=== PATIENT | male | born 1980 | race Caucasian/White ===

== ENCOUNTER → 2020-05-02 16:54 | Outpatient (BNVA) | payer OTHER, SELFPAY | PROVIDERS: Family Provider Nurse Practitioner Family; PCP Nurse Practitioner Family; Visit Provider Nurse Practitioner Family | DX: G89.29 Other chronic pain (principal); M54.16 Radiculopathy, lumbar region; Z13.6 Encounter for screening for cardiovascular disorders; J30.9 Allergic rhinitis, unspecified | CPT/HCPCS: 80053; 80061; 85025 ==

== ENCOUNTER → 2021-06-28 16:00 | Outpatient (BNVA) | payer OTHER, SELFPAY | PROVIDERS: Family Provider Nurse Practitioner Family; PCP Nurse Practitioner Family; Visit Provider Nurse Practitioner Family | DX: M54.16 Radiculopathy, lumbar region (principal); G89.29 Other chronic pain; Z13.6 Encounter for screening for cardiovascular disorders; F32.9 Major depressive disorder, single episode, unspecified; F41.9 Anxiety disorder, unspecified | CPT/HCPCS: 80053; 80061; 82306; 85025 ==

== ENCOUNTER → 2021-07-22 09:12 | Outpatient (BNVA) | payer OTHER, SELFPAY | PROVIDERS: Family Provider Nurse Practitioner Family; PCP Nurse Practitioner Family; Referring Provider Nurse Practitioner Family; Visit Provider Anesthesiology Pain Medicine | DX: G89.29 Other chronic pain (principal); M48.062 Spinal stenosis, lumbar region with neurogenic claudication; M47.816 Spondylosis without myelopathy or radiculopathy, lumbar region; M51.16 Intervertebral disc disorders with radiculopathy, lumbar region; M79.604 Pain in right leg; M79.605 Pain in left leg; F17.200 Nicotine dependence, unspecified, uncomplicated | CPT/HCPCS: 99204 ==

== ENCOUNTER 2021-08-21 08:22 | Outpatient (CLI) | payer OTHER, SELFPAY ==
--- NOTE | 2021-08-21 09:30 | XR_ITS ---
WS: [id number] LATERAL LUMBAR SPINE: 3 view. Lateral radiographs are performed in upright neutral, flexion and extension to the patient's toleranc e. HISTORY: M47.816 - Spondylosis without myelopathy or radiculopathy..., Chronic back pain rating to lo [facility] extremities. COMPARISON: 03/06/2020 Posterior lumbar alignment is normal. Mild disc space narrowing at L5-S1. No fractures. With flexion and extension there is no instability. XR/XR lumbar spine f/e only [id number] IMPRESSION: No lumbar spine instability.
== END 2021-08-21 08:23 | disposition home or self-care (01) ==
PROVIDERS: PCP Nurse Practitioner Family; Visit Provider Anesthesiology Pain Medicine
DX: M47.816 Spondylosis without myelopathy or radiculopathy, lumbar region (principal)
CPT/HCPCS: 72120

== ENCOUNTER 2021-08-21 08:22 | Outpatient (CLI) | payer OTHER, SELFPAY ==
--- NOTE | 2021-08-21 08:28 | MR_ITS ---
WS: [id number] MRI LUMBAR SPINE NONCONTRAST HISTORY: SPINAL STENOSIS, LUMBAR REGION COMPARISON: 03/06/2020 TECHNIQUE: Sagittal and axial multisequence imaging is submitted. Very slight straightening of the normal lumbar lordosis. Disc spaces are well preserved with only min imal desiccation at L5-S1. No fracture or marrow edema. Conus terminates normally at L1. L1-L2: Normal. L2-L3: Normal. L3-L4: Mild ligamentum flavum hypertrophy. No stenosis. L4-L5: Mild annular disc bulging. Previously described central to RIGHT paracentral disc protrusion h as significantly decreased in size. There is a focal soft tissue nodule consistent with disc extendi ng into the RIGHT subarticular recess contacting the RIGHT lateral thecal sac and the traversing RIGH T L5 nerve root. Small vertebral body osteophytes. There is also mild contact and narrowing of the LE FT subarticular recess predominantly due to disc and facet arthritis. Mild central stenosis with mild clumping of the nerve roots. There does appear to be a remote hemilaminectomy defect on the RIGHT at L4-5. L5-S1: Mild disc bulging with a very shallow central disc protrusion with annular fissures. No contac t on the nerve roots. Paravertebral soft tissues as visualized are negative. MR/MR lumbar spine wo con* [id number] IMPRESSION: 1. Moderate improvement of the previously described disc protrusion at L4-5. 2. Residual disc protrusion central and RIGHT paracentral at L4-5 is slightly extruded cephalad to the disc and contacts the traversing L5 nerve root. 3. Additional mild central stenosis at L4-5 with disc also contacting the lorie ersing LEFT L5 nerve root.
== END 2021-08-21 08:23 | disposition home or self-care (01) ==
PROVIDERS: PCP Nurse Practitioner Family; Visit Provider Anesthesiology Pain Medicine
DX: M48.062 Spinal stenosis, lumbar region with neurogenic claudication (principal); M51.26 Other intervertebral disc displacement, lumbar region
CPT/HCPCS: 72148

== ENCOUNTER → 2021-11-27 15:25 | Outpatient (BNVA) | payer OTHER, SELFPAY | PROVIDERS: PCP Nurse Practitioner Family; Visit Provider Nurse Practitioner Family | DX: M54.16 Radiculopathy, lumbar region (principal); G89.29 Other chronic pain; Z13.6 Encounter for screening for cardiovascular disorders; F41.9 Anxiety disorder, unspecified; F32.9 Major depressive disorder, single episode, unspecified; E55.9 Vitamin D deficiency, unspecified; E78.5 Hyperlipidemia, unspecified; K21.9 Gastro-esophageal reflux disease without esophagitis; J30.1 Allergic rhinitis due to pollen | CPT/HCPCS: 80053; 80061; 82306; 82607; 83735; 84443; 85025 ==

== ENCOUNTER → 2022-05-19 17:36 | Outpatient (BNVA) | payer OTHER, SELFPAY | PROVIDERS: PCP Nurse Practitioner Family; Visit Provider Nurse Practitioner Family | DX: E55.9 Vitamin D deficiency, unspecified (principal); E78.5 Hyperlipidemia, unspecified; M51.16 Intervertebral disc disorders with radiculopathy, lumbar region; J30.1 Allergic rhinitis due to pollen; K21.9 Gastro-esophageal reflux disease without esophagitis; F41.9 Anxiety disorder, unspecified; F32.9 Major depressive disorder, single episode, unspecified | CPT/HCPCS: 80053; 80061; 82306; 85025 ==

== ENCOUNTER → 2023-02-06 08:58 | Outpatient (BNVA) | payer OTHER, SELFPAY | PROVIDERS: PCP Nurse Practitioner Family; Referring Provider Nurse Practitioner Family; Visit Provider Student in an Organized Health Care Education/Training Program | DX: M79.642 Pain in left hand (principal); R22.32 Localized swelling, mass and lump, left upper limb | CPT/HCPCS: 73130 ==

== ENCOUNTER 2023-02-24 11:12 | Outpatient (CLI) | payer OTHER, SELFPAY ==
--- NOTE | 2023-02-24 11:45 | MR_ITS ---
WS: [id number] MRI OF THE LEFT HAND WITHOUT GADOLINIUM ENHANCEMENT. INDICATION: Pain in LEFT wrist. History of trauma. TECHNIQUE: Axial T1, axial T2, coronal T1, coronal STIR, sagittal T2 fat sat, coronal 3-D FSPGR FINDINGS: Small amount of edema in the capitate suspicious for nondisplaced fracture. Small fracture line visualized on the T1 imaging. Recommend correlation with area of pain. Small amounts of subcutaneous edema deep to the palpable marker along the dorsal wrist at the level o f the proximal metacarpals. No evidence of underlying fracture in the metacarpals. Small amount of so ft tissue contusion. Tenosynovitis along the adjacent extensor tendons. Small amount of fluid and michelle ma along the extensor retinaculum. Cystic degenerative changes involving the proximal and distal carpal row. Normal scaphoid. Normal natalie ate. Normal extensor carpi ulnaris. Normal carpal tunnel. Cystic degenerative changes involving the 3 rd metacarpal head. IMPRESSION: 1. Small amount of edema in the extensor retinaculum with tenosynovitis along the adjacent extensor tendons deep to the palpable marker. 2. Small amount of edema in the adjacent capitate suspicious nondisplaced fracture. Small fracture l ine visualized on the T1 imaging. Recommend correlation with area of pain. 3. Palpable marker overlying the base of the 3rd and 4th metacarpals. No fractures or dislocation in this area. 4. Normal scaphoid and lunate. 5. No other acute findings.
== END 2023-02-24 11:13 | disposition home or self-care (01) ==
PROVIDERS: PCP Nurse Practitioner Family; Visit Provider Student in an Organized Health Care Education/Training Program
DX: M79.642 Pain in left hand (principal); R60.0 Localized edema
CPT/HCPCS: 73218

== ENCOUNTER 2023-03-05 10:40 | Outpatient (CLI) | payer OTHER, SELFPAY | END 2023-03-05 10:41 | disposition home or self-care (01) | LOC: SPT 10:40 | PROVIDERS: PCP Nurse Practitioner Family; Visit Provider Student in an Organized Health Care Education/Training Program | DX: Z46.89 Encounter for fitting and adjustment of other specified devices (principal); M79.642 Pain in left hand | CPT/HCPCS: 97760; L3807 ==

== ENCOUNTER → 2023-04-23 08:05 | Outpatient (BNVA) | payer OTHER, SELFPAY | PROVIDERS: PCP Nurse Practitioner Family; Visit Provider Student in an Organized Health Care Education/Training Program | DX: S62.132A Displaced fracture of capitate [os magnum] bone, left wrist, initial encounter for closed fracture; X58.XXXA Exposure to other specified factors, initial encounter | CPT/HCPCS: 73130 ==

== ENCOUNTER → 2023-05-27 12:07 | Outpatient (BNVA) | payer OTHER, SELFPAY | PROVIDERS: PCP Nurse Practitioner Family; Visit Provider Nurse Practitioner Family | DX: E55.9 Vitamin D deficiency, unspecified (principal); E78.5 Hyperlipidemia, unspecified; G89.29 Other chronic pain; M54.16 Radiculopathy, lumbar region; Z79.899 Other long term (current) drug therapy | CPT/HCPCS: 80053; 80061; 82306; 82607; 83735; 84443; 85025 ==

== ENCOUNTER → 2023-10-13 16:57 | Outpatient (BNVA) | payer OTHER, SELFPAY | PROVIDERS: PCP Nurse Practitioner Family; Visit Provider Nurse Practitioner Family | DX: E78.5 Hyperlipidemia, unspecified | CPT/HCPCS: 80053; 80061; 85025 ==

== ENCOUNTER → 2023-10-22 13:16 | Outpatient (BNVA) | payer OTHER, SELFPAY | PROVIDERS: PCP Nurse Practitioner Family; Visit Provider Orthopaedic Surgery | DX: M51.16 Intervertebral disc disorders with radiculopathy, lumbar region (principal); M48.062 Spinal stenosis, lumbar region with neurogenic claudication; M54.9 Dorsalgia, unspecified | CPT/HCPCS: 72110 ==

== ENCOUNTER 2023-11-09 06:48 | Outpatient (CLI) | payer OTHER, SELFPAY ==
--- NOTE | 2023-11-09 07:15 | MR_ITS ---
WS: [id number] MRI LUMBAR SPINE NONCONTRAST HISTORY: back pain, RIGHT leg radiculopathy. COMPARISON: 08/21/2021 TECHNIQUE: Sagittal and axial multisequence imaging is submitted. C6-7 Central disc protrusion may contact the ventral cord. No high-grade stenosis. Normal lumbar alignment with no compression fractures or marrow edema. Mild disc space narrowing and desiccation at L4-5 and L5-S1. Conus terminates normally at L1. L1-L2: Normal. L2-L3: Normal. L3-L4: Mild annular disc bulging with mild ligamentum flavum and facet arthritis. There is slight radha rowing encroaching upon the ventral thecal sac which does appear progressed since the prior study. No high-grade stenosis. L4-L5: Diffuse annular disc bulging with a central broad-based disc protrusion. Disc protrusions exte nds into the subarticular recesses contacting the traversing L5 nerve roots bilaterally. Mild central and bilateral subarticular recess stenosis with mild encroachment into the foramina. There does appe ar to be a slight progression of stenosis at the L4-5 level with more disc protrusion into the subart icular recesses. Annular fissuring RIGHT paracentral. L5-S1: Mild annular disc bulging with mild facet arthritis. There is a small central disc protrusion with annular fissure. No interval change since the prior study. No significant contact on the nerve r oots. Paravertebral soft tissues are normal. IMPRESSION: 1. L4-5: Mild central, bilateral subarticular recess and foraminal stenosis. Mild progression of dis c contact on the traversing L5 nerve roots in the subarticular recesses. 2. Small central disc protrusion at L5-S1 with annular fissure is unchanged. No significant stenosis at L5-S1. 3. Very mild progression of central canal narrowing at L3-4. No significant stenosis.
== END 2023-11-09 06:49 | disposition home or self-care (01) ==
LOC: RAD 06:49
PROVIDERS: PCP Nurse Practitioner Family; Visit Provider Orthopaedic Surgery
DX: M51.27 Other intervertebral disc displacement, lumbosacral region (principal); M48.061 Spinal stenosis, lumbar region without neurogenic claudication
CPT/HCPCS: 72148

== ENCOUNTER → 2023-11-17 15:33 | Outpatient (BNVA) | payer OTHER, SELFPAY | PROVIDERS: PCP Nurse Practitioner Family; Visit Provider Orthopaedic Surgery | DX: M48.062 Spinal stenosis, lumbar region with neurogenic claudication (principal); Z09 Encounter for follow-up examination after completed treatment for conditions other than malignant neoplasm | CPT/HCPCS: 36415; 80053; 81003; 85025 ==

== ENCOUNTER 2023-12-14 17:14 | Observation (INO) | payer OTHER, SELFPAY ==
[2023-12-14] VITALS (15 sets, daily range): BP systolic 96–143; BP diastolic 57–95; PULSE 75–121; RESP 16–19; TEMP 36.4–36.7; O2SAT 92–99; BMI 28.5
--- NOTE | 2023-12-14 | XR_ITS ---
WS: [email or web address] C-ARM RADIOGRAPHS LUMBAR SPINE; 3 IMAGES HISTORY: ALFREDITO PICS COMPARISON: None available. Intraoperative imaging during lumbar fusion. Hardware extending from L4-S1. Interbody disc spacers at L4-5 and L5-S1. XR/XR lumbar spine 2-3V* [id number] IMPRESSION: Intraoperative imaging during lumbosacral fusion.
--- NOTE | 2023-12-14 12:27 | P.ANESASSM_ITS ---
Pre-Anesthetic Assessment Height/Weight: Height 1.83 m Weight 95.254 kg Temp Pulse Resp BP Pulse Ox O2 Del Method 98.1 F 75 16 143/95 99 Room Air 12/14/23 11:24 12/14/23 11:24 12/14/23 11:24 12/14/23 11:24 12/14/23 11:24 12/14/23 11:36 Preop Diagnosis: Lumbar stenosis neurogenic claudication Operation Date: 12/14/23 12:40 Proposed Procedures p Posterior Lumbar Interbody Fusion(Not Applicable) - Angel Estrada, DO Familial anesthetic complications: None Was Beta Henny taken within 24 hours: N/A Was Clonidine taken within 24 hours: N/A Last intake: Intake Last Liquid Date 12/13/23 Last Liquid Time 22:00 Last Solid Date 12/13/23 Last Solid Time 22:00 Social No alcohol and No tobacco Exam alert, oriented x 3, clear to auscultation bilaterally and regular rate & rhythm Airway Mallampati: Class IV Dentition: full Comments: Comments: full horan CV/HEM Hypertension GI Gastroesophageal Reflux Disease Anesthetic Plan ASA status: 2 Anesthesia: General Risk of > 500 ml blood loss (7ml/kg in children): No Medications/Allergies Home Medications Medication Instructions Recorded Confirmed Last Taken Type FAST FORM #1 ea 03/05/23 11/17/23 Unknown Rx diclofenac sodium 1 % topical gel 4 g topical QID #100 grams 03/05/23 12/11/23 Unknown Rx (Voltaren Arthritis Pain) fast form left hand #1 ea 03/05/23 11/17/23 Unknown Rx epinephrine 0.3 mg/0.3 mL 0.3 mg (0.3 mL) IM ONCE PRN 05/27/23 12/11/23 Unknown Rx injection, auto-injector (EpiPen) anaphylaxis #1 ea celecoxib 200 mg capsule (Celebrex) 200 mg PO BID PRN pain #60 caps 10/13/23 12/11/23 12/09/23 Rx bone growth stimulator #1 ea 11/18/23 Unknown Rx baclofen 20 mg tablet 20 mg PO BID 12/11/23 12/11/23 12/09/23 History fluoxetine 40 mg capsule 40 mg PO BID 12/11/23 12/11/23 12/14/23 History lisinopril 10 mg tablet 10 mg PO DAILY 12/11/23 12/11/23 12/10/23 History montelukast 10 mg tablet 10 mg PO DAILY 12/11/23 12/11/23 12/13/23 History omeprazole 20 mg capsule,delayed 20 mg PO DAILY 12/11/23 12/11/23 12/13/23 History release Allergies Allergy/AdvReac Type Severity Reaction Status Date / Time ragweed pollen Allergy Severe shortness Verified 12/11/23 11:46 of breath; throat closes up; anaphylaxis gabapentin Allergy hallucinati Verified 12/11/23 11:46 ons [facility] Anesthesia Medical History Displacement of lumbar disc with radiculopathy Anxiety and depression Chronic radicular lumbar pain Anxiety Surgical History Hx of shoulder surgery right shoulder 2016 had clean out at [facility] History of back surgery [place] [facility] History of appendectomy Family History Other Cancer Hypertension Social History Smoking and tobacco/nicotine status: former use of tobacco/nicotine (20 years ago) Quit status (tobacco/nicotine): has quit using Year quit tobacco: 2001 Alcohol intake: current Alcohol intake frequency: few times a month Alcohol type: beer Substance/Drug Use: never Caregiver/support person: Yes Lives independently: Yes Marital status: Current occupational status: employed Current gender identity: Male Special chi needs: No Data Anesthesia Cardiac Studies: No Data to Display
[2023-12-14] MEDS: sodium chloride 0.9% 1,000 ML 30 ML IV (12:28)
[2023-12-14] MEDS: midazolam 1 mg/mL INJ 2 mL 2 MG IVP (12:34)
--- NOTE | 2023-12-14 13:51 | W.PM.OPSUD ---
Surgery/Procedure H&P Update DATE OF PROCEDURE: December 14, 2023 DATE H&P PERFORMED: 11/27/23 H&P UPDATE INFORMATION: I have reviewed H&P completed within last 30 days, I have examined patient prior to procedure and No changes to prior documentation PREOP DIAGNOSIS: Lumbar stenosis neurogenic claudication PLANNED PROCEDURE: Operation Date: 12/14/23 12:40 Proposed Procedures p Posterior Lumbar Interbody Fusion(Not Applicable) - Angel Estrada DO
[2023-12-14] MEDS: scopolamine 1.5 Patch 1 PATCH TRANSDERMA (14:05)
[2023-12-14] MEDS: ceFAZolin 2,000 MG in sodium chloride 0.9% (plus) 50 ML 100 MG IV ×3 (14:25→22:21)
[2023-12-14] MEDS: vancomycin 1,000 MG SDV 1000 MG XX (16:56)
[2023-12-14] MEDS: heparin, porcine 1,000 unit/mL INJ 10 mL 10000 UNIT IRRIGATION (16:56)
[2023-12-14] MEDS: lidocaine-epi 1% 20 mL INJ INJECTION (16:57)
--- NOTE | 2023-12-14 19:13 | P.OP_ITS ---
Operative Report Date of procedure: December 14, 2023 Pre-op diagnosis: Lumbar stenosis with neurogenic claudication Post-op diagnosis: same Procedure done: 1.?L5/S1 interbody fusion with posterolateral fusion 2. Cage at L5/S1 3. L4/5 Interbody fusion with posterolateral fusion 4. Cage at L4/5 5.? Instrumentation L4-S1 6. L5-S1 laminectomy with facetectomies 7. L4-5 laminectomy with facetectomies 8. use of computer navigation / stereotactic spine 9. use of autograft from same incision 10. allograft 11. Bone marrow aspirate from right iliac crest 12. Revision spine surgery Surgeon: Angel Estrada DO Estimated blood loss (mL): 750 Complications: Dural tear repaired with water tight seal use DuraGen and DuraSeal. Procedure: 1.?L5/S1 interbody fusion with posterolateral fusion 2. Cage at L5/S1 3. L4/5 Interbody fusion with posterolateral fusion 4. Cage at L4/5 5.? Instrumentation L4-S1 6. L5-S1 laminectomy with facetectomies 7. L4-5 laminectomy with facetectomies 8. use of computer navigation / stereotactic spine 9. use of autograft from same incision 10. allograft 11. Bone marrow aspirate from right iliac crest 12. Revision spine surgery Patient is brought to the operative suite.? After undergoing anesthesia, the patient had neuro monitoring attached.? Patient was then placed in the prone position on the Dar table.? All areas of impingement were well-padded.? Patient was then prepped and draped in the normal sterile fashion.? Skin incision was then made over the L1 to the sacrum using previous skin incision.? Subperiosteal dissection was made out to the transverse processes of L4 bilaterally L5 bilaterally and sacral ala bilaterally.? The [employer] bone marrow aspirate kit was used to aspirate bone marrow aspirate.? This was done by using the sharp probe to open up the bone.? Aspiration was performed and then the blunt probe was then used to dissect down to through the bone tunnel.? An aspirating well drawn back a millimeter approximately 20 cc of bone marrow aspirate was used.? Admixed with the allo graft and autograft bone that will be used. Next attension was brought to placing the fiducial for the computer navigation.? 2 pins were placed into the right iliac crest.? The fiducial was attached.? The C-arm was brought in and information from the C arm was then linked to the computer used for placing the screws.? Next attention was brought to placing the pedicle screws.? This was done by jian fajardo the gearshift probe linked to computer navigation.? The probe was used to identify the pedicle.? Then the pedicle feeler was used followed by placement of screw.? This was done at L4 bilaterally, L5 bilaterally and S1 bilaterally. Next attention was brought to performing the laminectomy of L5. This was done using the high-speed bur Kerrisons and curettes. Once the lamina was removed and then attention was brought to performing a partial facetectomy on the contralateral side. This was done again using the high-speed bur curettes and Kerrisons. The ligamentum flavum was taken down bilaterally from L5 to S1. Attention was then brought to the facet on the ipsilateral side. The facet was taken down. The s1 nerve was decompressed as it passed around the S1 pedicle. The laminectomy was done for purposes of decompressing the nerve as well as placement of the cage. The L5 nerve was identified as it traversed through the L5/s1 foramen. The thecal sac was identified and retracted. The L5/S1 disc base was identified. Using a knife the disc base was opened. And then sequential natalie were placed. The first shaver was a 6 and the last shaver was a 11. Using a pituitary and down going curette the endplates were scraped and disc material was removed from the space. Once adequate decompression of the disc base was felt to be had. Osteoamp sponge was packed into the anterior aspect of the disc base. Then a size 12 cage from [employer] was placed after packing osteoamp into the cage. While placing the cage the thecal sac and S1 nerve was protected. C arm was used to ensure that the cages placed in the appropriate position. Next attention was brought to performing the laminectomy of L4. Patient had had a previous L4-5 laminectomy with partial facetectomy on the right side 2 previous times. There is significant scar tissue. Patient did get a dural tear. Which was repaired with suture seem to be watertight seal and DuraGen and DuraSeal used to repair. A Valsalva maneuver was used and there was no leakage. This was done using the high-speed bur Kerrisons and curettes. Once the lamina was removed and then attention was brought to performing a partial facetectomy on the contralateral side. This was done again using the high-speed bur curettes and Kerrisons. The ligamentum flavum was taken down bilaterally from L4 to L5. Attention was then brought to the facet on the ipsilateral side. The facet was taken down. The L5 nerve was decompressed as it passed around the L5 pedicle. The laminectomy was done for purposes of decompressing the nerve as well as placement of the cage. The L4 nerve was identified as it traversed through the L4/L5 foramen. The thecal sac was identified and retracted. The L4/5 disc space was identified. Using a knife the disc base was opened. And then sequential natalie were placed. The first shaver was a 6 and the last shaver was a 11. Using a pituitary and down going curette the endplates were scraped and disc material was removed from the space. Once adequate decompression of the disc base was felt to be had. Osteoamp sponge was packed into the anterior aspect of the disc base. Then a size 12 cage from [employer] was placed after packing osteoamp into the cage. While placing the cage the thecal sac and L5 nerve was protected. C arm was used to ensure that the cages placed in the appropriate position. Prior to placing the cage there was a small hole made with a drill in the dura. This was repaired using a Nurolon stitch which had watertight closure. Attention was then brought to attaching the rods to the screws placed in theL4 bilaterally, L5 bilaterally and S1 bilaterally.? Caps were torqued into position. Locking the construct in place. Wound was copiously irrigated and then attention was brought to decorticating the facets and transverse processes laterally.? Bone that was taken down from the lamina was used along with osteoamp fibers and sponges were packed into the lateral gutters along the facet joints.? This was done bilaterally. Wound was then closed in a layered fashion starting with the thoracolumbar fascia.? 0-vicryl was used the sub cutaneous tissue was closed with 2-0 vicryl and skin with 4-0 monocryl.? Glue was then used to seal the skin and a steril dressing was applied.? Patient was then placed in the supine position. The endotracheal tube was removed and patient was transferred to the PACU in stable condition.
--- NOTE | 2023-12-14 20:15 | ANE.PACU2 ---
Inpatient post-anesthesia follow up: Airway intact: Yes Vital signs: Temperature 97.5 F Pulse Rate 76 Respiratory Rate 18 Blood Pressure 100/61 Pulse Oximetry 97 Oxygen Delivery Me thod Room Air Oxygen Flow Rate 6 Fraction of Inspir ed Oxygen Hydration adequate: Yes Nausea and vomiting: No Pain level: 1 Mental status: Baseline
[2023-12-14] MEDS: lactated ringers 1,000 ML 90 ML IV (20:54)
[2023-12-14] MEDS: lanolin oint 7 gm 1 APPLIC TOPICAL (20:55)
[2023-12-14] MEDS: morphine 4 mg/mL SDV 1 mL 2 MG IVP (22:10)
[2023-12-15 01:15] VITALS: BP 100/65; PULSE 82; O2SAT 97
[2023-12-15] MEDS: ketorolac 30 mg/mL INJ IVP (01:53)
[2023-12-15 03:15] VITALS: BP 99/65; PULSE 72; O2SAT 96
[2023-12-15 05:37] LABS: Hematocrit 37.6 % (37-53)
[2023-12-15 06:00] VITALS: BP 100/65; PULSE 71; RESP 17; TEMP 36.9; O2SAT 99
[2023-12-15] MEDS: ceFAZolin 2,000 MG in sodium chloride 0.9% (plus) 50 ML 100 MG IV ×2 (06:15→13:22)
--- NOTE | 2023-12-15 07:48 | P.PN_ITS ---
Subjective 2 Subjective: Patient is sitting up in bed this morning even though he is presently flat. Patient stated the nurses set him up. At this point we will see how he does eating breakfast. See how he does with physical therapy Vitals/I&O/Wt Last Vital Signs Temp 98.5 F 12/15/23 06:00 Pulse 71 12/15/23 06:00 Resp 17 12/15/23 06:00 BP 100/65 12/15/23 06:00 Pulse Ox 99 12/15/23 06:00 O2 Del Method Room Air 12/15/23 06:00 O2 Flow Rate 6 12/14/23 19:45 12/14/23 12/15/23 12/15/23 22:59 06:59 14:59 Intake Total 2200 / 2200 0 / 2200 Output Total 1150 / 1150 735 / 1885 Balance 1050 / 1050 -735 / 315 Weight last 48 hrs Weight 203 lb 2 oz Weight 203 lb 2 oz Weight 210 lb Physical Exam 2 Narrative: Patient is complaining of headache and nausea. Good strength bilateral lower extremities. Patient wants to go home. Urinary Catheter Management: Calero: Cath Placed During This Visit: yes, but has since been removed by the nurse Reason for Continuing Indwelling Catheter: Perioperative Use in Selected Surgeries Urinary Catheter Date of Insertion: 12/14/23 Urinary Catheter Time of Insertion: 14:45 Date Urinary Catheter Removed: 12/15/23 Time Urinary Catheter Discontinued: 06:15 Data 12/15/23 05:22 A&P Assessment and plan (1) Status post lumbar spinal fusion: Postop day 1 lumbar fusion. At this point plan is to see how he does ambulating with physical therapy at the time of discharge planning. Will leave drain until after he gets up. If patient tolerates ambulation well we will discharge today. Attestations 2 Medical Necessity Statement*: Possible discharge today otherwise will be for pain control. Coding Level of Care Code Acute Code for Chg Fwd Diagnoses Status post lumbar spinal fusion Z98.1
[2023-12-15 08:12] VITALS: BP 101/63; PULSE 86; RESP 20; TEMP 36.6; O2SAT 100
[2023-12-15] MEDS: montelukast sodium 10 mg Tablet PO (08:28)
[2023-12-15] MEDS: lactated ringers 1,000 ML 90 ML IV (08:28)
[2023-12-15] MEDS: pantoprazole DR 40 mg Tablet PO (08:28)
[2023-12-15] MEDS: docusate sodium 100 mg Capsule PO (08:28)
[2023-12-15] MEDS: baclofen 10 mg Tablet 20 MG PO (08:28)
[2023-12-15] MEDS: fluoxetine 20 mg Capsule 40 MG PO (08:28)
[2023-12-15] MEDS: ondansetron 2 mg/ML SDV 2 mL 4 MG IVP (08:39)
--- NOTE | 2023-12-15 09:18 | PC.CHAP ---
Pastoral Care Encounter/Spiritual Assessment Type of Contact [] Declined lead systems analyst visit [] Patient/Family/Request visit [] Outpatient visit [] Follow-up visit [] Physician referral [] Code/Alert [] Routine visit [] Staff referral [] Actively dying [] Patient sleeping [] Family support [] [] Out of room [] Palliative care [] [x] Receiving care in room [] Pre-surgical visit [] Trauma [] Long length of stay [] ICU visit [] Other: Relational/Emotional Strength [] Patient feels connected with others/family/visitors/staff [] Distress [] Loneliness/isolation [] Abandonment Spirituality of Patient [] Person of [place] [] Attends Mormonism of their [place] [] Believes in Prayer [] Reads Bible or Mu-Ism materials [] There are Spiritual issues to be addressed Multifocal Button Inspector Interventions [] Prayer [] Active listening [] Non-anxious presence [] Spiritual/emotional support [] Crisis/trauma care [] Spiritual counseling [] Bereavement support [] Provided bereavement packet [] Provided Bible/devotional materials [] Provided toy/stuffed animal, coloring book to patient or family member [] Provided Communion [] Anointing/[place] [] Salvation [] Completed spiritual assessment [] Other: Impact on Illness or Injury [] Angry [] Fearful [] Anxious [] Often cries [] Exhaustion [] Unable to work [] Unable to attend yazidism [] Unable to walk/stand [] Unable to read [] Unable to drive [] Unable to eat/drink [] Unable to sleep [] Unable to be with family [] Patient intubated [] Other: Summary Time spent with patient
[2023-12-15] MEDS: acetaminophen 325 mg Tablet 650 MG PO (10:43)
[2023-12-15 11:01] VITALS: BP 100/61; PULSE 76; RESP 18; TEMP 36.4; O2SAT 97
--- NOTE | 2023-12-15 13:14 | P.DS_ITS ---
Discharge Providers Date of Admission: 12/14/23 17:14 Date of Discharge: December 15, 2023 Attending Provider at Admission: Angel Estrada DO Attending Provider at Discharge: Angel Estrada DO Primary Care Provider: CARLOS Evans Diagnoses at Discharge Discharge Diagnosis (1) Status post lumbar spinal fusion: Status: Acute Reason for Visit Reason for Visit: M48.062 Physical Exam Urinary Catheter Management: [place]: Cath Placed During This Visit: yes, but has since been removed by the nurse Reason for Continuing Indwelling Catheter: Perioperative Use in Selected Surgeries Urinary Catheter Date of Insertion: 12/14/23 Urinary Catheter Time of Insertion: 14:45 Date Urinary Catheter Removed: 12/15/23 Time Urinary Catheter Discontinued: 06:15 Discharge Data Studies Completed and Pending Completed Studies During Hospitalization Category Date Time Status XR lumbar spine 2-3V* [id number] Routine Exams 12/14/23 00:00 Completed Pending at discharge Category Date Time Status Retype for Patiets ABO/Rh Routine Lab 12/14/23 13:56 Received Radiology Impressions Lumbar Spine X-Ray 12/14/23 00:00 IMPRESSION: Intraoperative imaging during lumbosacral fusion. Laboratory Results Hgb 12.60 g/dL (11.27-16.99) 12/15/23 05:22 Hct 37.6 % (37-53) 12/15/23 05:22 Blood Type A Positive 12/14/23 11:50 Rho(D) Type Rh positive 12/14/23 11:50 Antibody Screen Negative 12/14/23 11:50 Vitals Last Vital Signs Temp 97.5 F L 12/15/23 11:01 Pulse 76 12/15/23 11:01 Resp 18 12/15/23 11:01 BP 100/61 12/15/23 11:01 Pulse Ox 97 12/15/23 11:01 O2 Del Method Room Air 12/15/23 11:01 O2 Flow Rate 6 12/14/23 19:45 Discharge Plan Discharge Patient Disposition: Home Condition: Stable Prescriptions: New hydrocodone-acetaminophen 5-325 mg tablet 1 - 2 tab PO .Q4-6H Qty: 40 0RF Continued epinephrine [EpiPen] 0.3 mg/0.3 mL auto-injector 0.3 mg IM ONCE PRN (Reason: anaphylaxis) Qty: 1 0RF celecoxib [Celebrex] 200 mg capsule 200 mg PO BID PRN (Reason: pain) Qty: 60 5RF (DME) fast form left hand See Rx Instructions .Route .MEDSUPPLY Qty: 1 0RF Rx Instructions: As directed diclofenac sodium [Voltaren Arthritis Pain] 1 % gel 4 g topical QID Qty: 100 0RF Rx Instructions: apply to single knee, ankle, foot; for foot includes sole/toes/top of foot (DME) FAST FORM See Rx Instructions .Route .MEDSUPPLY Qty: 1 0RF Rx Instructions: As directed (DME) bone growth stimulator See Rx Instructions .Route .MEDSUPPLY Qty: 1 0RF Rx Instructions: As directed fluoxetine 40 mg capsule 40 mg PO BID Rx Instructions: Take 1 capsule by mouth twice daily baclofen 20 mg tablet 20 mg PO BID Rx Instructions: Take 1 tablet by mouth twice daily lisinopril 10 mg tablet 10 mg PO DAILY Rx Instructions: Take 1 tablet by mouth once daily omeprazole 20 mg capsule,delayed release(DR/EC) 20 mg PO DAILY Rx Instructions: Take 1 capsule by mouth once daily montelukast 10 mg tablet 10 mg PO DAILY Rx Instructions: Take 1 tablet by mouth once daily Discharge Orders: Discharge Order (Routine); Ordered 12/15/23 Ordered By: Angel Estrada Discharge Diet: Advance as tolerated Discharge Activity: Limit activity as instructed Patient Instructions: Opioid Safety Activity Restrictions/Additional Instructions: Thank you for [facility] for your care! The fo llowing is a list of instructions, from your provider, to follow upon your discharge to ensure you have the optimal recovery from your recent injury orsurgery. Follow-up care is a giles part of your treatment and safety. Be sure to make and go to all appointments, and call your doctor if you are having problems. If you do not already have a follow-up appointment made, call Dr. Estrada office in the next 1-3 days to make follow up appointment for 1 weeks at [phone]. It is also a good idea to know your test results and keep a list of the medicines you take. Medications will be prescribed for you at your provider's discretion. These medications are to be used as instructed; if they are taken more often that prescribed they will not be refilled early and in most cases will not be refill ed at all. > When a refill is needed,you should contact jose luis galvez 2-3 business days before your prescription runs out. Medications will NOT be refilled by electronic device repairer providers after hours! > Many pain medications contain Tylenol (Acetaminophen). Do not consume more than 4,000 mg of Tylenol per day in total with any combination ofmedications. > Pain medications can cause constipation. Please use an over the counter stool softener as directed, while taking pain medications. Consulty our local pharmacist with questions or recommendations on stool softeners. If con stipation persists, contact our office or your primary care provider. > While under our care,you are not to receive pain medications or other controlled substances from any other provider unless our office is notified and approves. Any attempts to do so will result in refusal to prescribe any further pain medications and possible dismissal from our practice. ? Your wound and/or dressing should remain clean and dry for 7 days after surgery. On postoperative day 7 Pad dry afterwards. No further dressing should be required from that point on. Do not put any creams or ointments on theincision > It is normal for there to be a small amount of discharge (bloody or blood tinged) present from a surgical wound for the first 1-3days. > The wound should be examined twice a day for signs of infection. Mild redness or bruising is to be expected but indications that an infection maybe starting would include; An increase in redness, swelling, or discharge, a foul odor present around the incision, and/or a fever greater than 101 ?F ? Showering is permitted, however we ask that you do not take a bath, sit in a whirlpool / Jacuzzi, or go swimming for 1 month. For only the first 2 days after surgery, lt wilt be necessary for you to cover your wound/dressing with plastic and tape to keep it dry. ? Walking is essential for the healing process after surgery. We would like you to slowly advance your walking. This should be done on relatively flat clear ground (inside or out) or can be done on a treadmill. Remember this goal does not have to happen all at once, slowly increase your distance and duration. This can be broken into more more than one walk per day as tolerated. Patients who walk as directed after surgery rarely require Physical Therapy. In the unlikely event this issue arises your provider will direct hospital staff to make the appropriate arrangements. ? No lifting over 5 pounds {a gallon of milk) or bending/twisting until further notice. Each of these activities places an unnecessary amount of stress onto the body and can impede the delicate healing process. > Instead of bending at the waist, keep your back straight and bend at the knees. > Instead of twisting your torso, keep your back straight and turn your entire body with your feet. ? You may sleep in any position which makes you comfortable. Many patients find comfort sleeping in a reclining chair. It is not abnormal to have difficulty sleeping for the first several weeks following your surgery. We recommend trying Benadry! or Tylenol PM as directed to help with your sleeping difficulties. Both medications are over the counter and available withoutprescription. ? NO SMOKING!!! Smoking dramatically increases the probability of developing postoperative wound infections. ? Common complaints after lumbar and/or thoracic spine surgery include, but are not limited to: numbness and/or tingling in the legs, pain around the incision and surrounding tissues, muscle spasms, or stiffness of the middle to low back. Contact our office if these symptoms persist or if an acute change occurs. ? No driving for the first 3-5days, and not while taking narcotics [] until seen at your follow-up appointment and cleared. There are no restrictions for riding on short trips, however if you take a longer trip, arrangements should be made to make regular stops to get out of the vehicle and stretch . ? Swelling is an unfortunate event that will take place with any surgery and is the primary source of your postoperative discomfort. While walking and regular approved activities helps control inflammation, there are additional steps you can take to minimizeswelling. > Place ice over the surgical site and surrounding tissue for twenty minutes, followed by applying a low/medium heat (heating pad) for an additional twenty minutes every 1-2 hours as needed for painrelief. > You may use of over the counter anti-inflammatory medications (Ibuprofen, Motrin, Aleve, Advil, etc) as directed on the package label. These types of medicines wm significantly reduce the amount of discomfort you experience after surgery from swelling. It should be noted that if you have and allergy to any of these medications, or a history of ulcers or kidney disease you should consult you primary care provider prior to starting these medications. Discharge Attestations Time Spent in Discharge Care*: less than 30 min Quality Metrics Clinical Quality Measures [ No reported AMI, CVA or VTE this stay] Coding Level of Care Code Acute Code for Chg Fwd Diagnoses Status post lumbar spinal fusion Z98.1
--- NOTE | 2023-12-15 13:31 | PC.NURSE ---
Hemovac was removed per telephone order from Dr. Estrada. Pt tolerated well.
--- NOTE | 2023-12-15 15:10 | PC.NURSE ---
Discharge delay due to waiting on pharmacy to program the pyxis so that we can remove the patients home meds.
[2023-12-15 15:36] VITALS: BP 100/61; PULSE 76; RESP 18; TEMP 36.4; O2SAT 97
== END 2023-12-15 15:37 | disposition home or self-care (01) ==
LOC: MEDSURG 17:16
PROVIDERS: Admitting Provider Orthopaedic Surgery; PCP Nurse Practitioner Family; Visit Provider Orthopaedic Surgery
PROC: (CPT 22612; principal; 2023-12-14 12:20)
DX: M48.062 Spinal stenosis, lumbar region with neurogenic claudication (principal); I10 Essential (primary) hypertension; K21.9 Gastro-esophageal reflux disease without esophagitis; Z87.891 Personal history of nicotine dependence
CPT/HCPCS: 20930; 20936; 20939; 22633; 22634; 22842; 22853 ×2; 61783; 63052; 63053; 36415; 51702; 72100; 76000; 85014; 85018; 86850; 86900; 97161; C1713; C9359; G0378; J0131; J0330; J0690; J1100; J1170; J1200; J1644; J1885; J2250; J2270; J2371; J2405; J2704; J3010; J3370; J3490; J7030; J7120; P9045

== ENCOUNTER → 2024-01-26 12:58 | Outpatient (BNVA) | payer OTHER, SELFPAY | PROVIDERS: PCP Nurse Practitioner Family; Visit Provider Orthopaedic Surgery | DX: Z98.1 Arthrodesis status (principal) | CPT/HCPCS: 72100 ==

== ENCOUNTER → 2024-03-22 14:54 | Outpatient (BNVA) | payer OTHER, SELFPAY | PROVIDERS: PCP Nurse Practitioner Family; Visit Provider Orthopaedic Surgery | DX: Z98.1 Arthrodesis status (principal) | CPT/HCPCS: 72100 ==

== ENCOUNTER → 2024-06-28 15:30 | Outpatient (BNVA) | payer OTHER, SELFPAY | PROVIDERS: PCP Nurse Practitioner Family; Visit Provider Orthopaedic Surgery | DX: Z98.1 Arthrodesis status (principal) | CPT/HCPCS: 72100 ==

== ENCOUNTER 2024-07-27 15:05 | Outpatient (RCR) | payer OTHER, SELFPAY | END 2024-08-09 23:59 | disposition home or self-care (01) | LOC: SPT 15:05 | PROVIDERS: Visit Provider Orthopaedic Surgery | DX: M54.9 Dorsalgia, unspecified (principal); G89.29 Other chronic pain | CPT/HCPCS: 97110; 97161 ==

== ENCOUNTER → 2025-03-02 13:37 | Outpatient (BNVA) | payer OTHER, SELFPAY | PROVIDERS: PCP Family Medicine; Visit Provider Orthopaedic Surgery | DX: M50.323 Other cervical disc degeneration at C6-C7 level (principal); Z98.1 Arthrodesis status | CPT/HCPCS: 72050; 72100 ==

== ENCOUNTER 2025-08-01 10:00 | Day surgery (SDC) | payer OTHER, SELFPAY ==
[2025-08-01 10:08] VITALS: BMI 29.8
[2025-08-01 10:31] VITALS: BP 120/88; PULSE 89; RESP 18; TEMP 36.4; O2SAT 99
--- NOTE | 2025-08-01 10:31 | P.ANESASSM_ITS ---
Pre-Anesthetic Assessment Height/Weight: Height 1.83 m Weight 99.79 kg Preop Diagnosis: Lumbar stenosis neurogenic claudication Operation Date: 08/01/25 11:30 Proposed Procedures p EGD(Not Applicable) - De Yates MD Familial anesthetic complications: None Was Beta Henny taken within 24 hours: N/A Was Clonidine taken within 24 hours: N/A Last intake: Intake Last Liquid Date 07/31/25 Last Solid Date 07/31/25 Social No alcohol and No tobacco Exam alert, oriented x 3, clear to auscultation bilaterally and regular rate & rhythm Airway Mallampati: Class IV Dentition: full Comments: Comments: full horan CV/HEM Hypertension GI Gastroesophageal Reflux Disease Anesthetic Plan ASA status: 2 Anesthesia: General Risk of > 500 ml blood loss (7ml/kg in children): No Medications/Allergies Home Medications ?Medication ?Instructions ?Recorded ?Confirmed ?Last Taken ?Type epinephrine 0.3 mg/0.3 mL 0.3 mg (0.3 mL) IM ONCE PRN 05/27/23 08/01/25 Unknown Rx injection, auto-injector (EpiPen) anaphylaxis #1 ea Bone Growth Stimulator #1 ea 12/30/23 07/27/25 Unkn own Rx duloxetine 30 mg capsule,delayed 30 mg PO DAILY #30 ca ps 01/06/25 07/28/25 07/31/25 Rx release fluoxetine 60 mg tablet 60 mg PO DAILY #30 tabs 12/1007/28/25 07/31/25 Rx montelukast 10 mg tablet 10 mg PO DAILY #30 tabs 0507/28/25 07/31/25 Rx celecoxib 200 mg capsule 200 mg PO BID PRN pain #14 c aps 02/24/25 07/28/25 07/31/25 Rx losartan 25 mg tablet 25 mg PO DAILY #90 tabs 06/1007/28/25 07/31/25 Rx cyclobenzaprine 10 mg tablet 10 mg PO BID PRN muscle s pasm #60 07/17/25 07/28/25 07/31/25 Rx tabs omeprazole 40 mg capsule,delayed 40 mg PO BID #60 caps 07/24/25 07/28/25 07/31/25 Rx release sucralfate 1 gram tablet (Carafate) 1 g PO BID #60 tab s 07/24/25 08/01/25 07/31/25 Rx Allergies Allergy/AdvReac Type Severity Reaction Status Date / Time ragweed pollen Allergy Severe shortness Verified 08/01/25 10:20 of breath; throat closes up; anaphylaxis gabapentin Allergy hallucinati Verified 08/01/25 10:20 ons [facility] Anesthesia Medical History Muscle tension headache Moderate major depression Displacement of lumbar disc with radiculopathy Anxiety and depression Chronic radicular lumbar pain Anxiety Surgical History (Updated 07/27/25 @ 08:30 by Reed Vega LPN) Hx of shoulder surgery right shoulder 2016 had clean out at [facility] History of back surgery back surgery at [facility] [place] [facility] with Dr. Patterson History of appendectomy Family History Other Cancer Hypertension Social History Smoking and tobacco/nicotine status: never used tobacco/nicotine Quit status (tobacco/nicotine): has quit using Year quit tobacco: 2001 Alcohol intake: current Alcohol intake frequency: few times a month Alcohol type: beer Substance/Drug Use: never Caregiver/support person: Yes Lives independently: Yes Marital status: Current occupational status: employed Current gender identity: Male Special chi needs: No
--- NOTE | 2025-08-01 10:36 | W.PM.OPSUD ---
Surgery/Procedure H&P Update DATE OF PROCEDURE: August 01, 2025 DATE H&P PERFORMED: 07/27/25 H&P UPDATE INFORMATION: I have reviewed H&P completed within last 30 days, I have examined patient prior to procedure, No changes to prior documentation and Risks and benefits of the procedure reviewed PREOP DIAGNOSIS: Lumbar stenosis neurogenic claudication PLANNED PROCEDURE: Operation Date: 08/01/25 11:30 Proposed Procedures p EGD(Not Applicable) - De Yates MD
[2025-08-01 10:52] VITALS: BP 114/68; PULSE 82; RESP 12; TEMP 36.2; O2SAT 99
[2025-08-01 11:25] VITALS: BP 132/78; PULSE 76; RESP 16; O2SAT 99
--- NOTE | 2025-08-01 11:30 | ANE.PACU2 ---
Inpatient post-anesthesia follow up: Vital signs: Temperature 97.2 F Pulse Rate 76 Respiratory Rate 16 Blood Pressure 132/78 Pulse Oximetry 99 Oxygen Delivery Me thod Room Air Oxygen Flow Rate Fraction of Inspir ed Oxygen
== END 2025-08-01 11:30 | disposition home or self-care (01) ==
PROVIDERS: PCP Family Medicine; Visit Provider Student in an Organized Health Care Education/Training Program
PROC: 0DJ08ZZ Inspection of Upper Intestinal Tract, Via Natural or Artificial Opening Endoscopic (ICD-10-PCS; principal; 2025-08-01 11:30)
DX: K92.1 Melena (principal); K21.9 Gastro-esophageal reflux disease without esophagitis; K29.50 Unspecified chronic gastritis without bleeding; K44.9 Diaphragmatic hernia without obstruction or gangrene; I10 Essential (primary) hypertension; F32.9 Major depressive disorder, single episode, unspecified; F41.8 Other specified anxiety disorders; Z80.9 Family history of malignant neoplasm, unspecified; Z87.891 Personal history of nicotine dependence
CPT/HCPCS: 43239; 88305; 88342; J2704; J7030